=== PATIENT | female | born 1950 | race Two or more races ===

== ENCOUNTER 2023-11-02 05:59 | Day surgery (SDC) | payer MEDICARE, SELFPAY ==
[2023-10-23 14:20] VITALS: BMI 24.5
[2023-10-25 08:37] VITALS: BMI 24.5
[2023-11-02] VITALS (8 sets, daily range): BP systolic 130–163; BP diastolic 63–94; BMI 24.5
[2023-11-02] MEDS: CELEBREX 200 MG PO (06:39)
[2023-11-02] MEDS: TYLENOL 1000 MG PO (06:39)
[2023-11-02] MEDS: NORMOSOL-R 1000 IV (07:00)
[2023-11-02] MEDS: ANCEF 5 IV (11:30)
== END 2023-11-02 11:42 | disposition home or self-care (01) ==
LOC: SDS 05:59
PROVIDERS: ATTENDING PHYSICIAN Specialist
PROC: 0RRJ00Z Replacement of Right Shoulder Joint with Reverse Ball and Socket Synthetic Substitute, Open Approach (ICD-10-PCS; 2023-11-02)
DX: M80.821A Other osteoporosis with current pathological fracture, right humerus, initial encounter for fracture (principal); W19.XXXA Unspecified fall, initial encounter
CPT/HCPCS: 23472; 73020; C1713; C1776